=== PATIENT | male | born 1935 | race Two or more races ===

== ENCOUNTER 2021-04-19 11:50 | Inpatient (IN) | payer OTHER ==
[~2021-04-19] VITALS: Ht 182.9 cm; Wt 108.9 kg
[2021-04-19] MEDS ORDERED: LEVOTHYROXINE25 MCG PO (12:03)
[2021-04-19] MEDS ORDERED: GLUMETZA500 MG PO (12:03)
[2021-04-19] MEDS ORDERED: COZAAR100 MG PO (12:03)
[2021-04-19] MEDS ORDERED: VITACEL TABLET1 EACH PO (12:04)
[2021-04-19] MEDS ORDERED: DILTIAZEM ER300 MG PO (12:04)
[2021-04-19] MEDS ORDERED: OZEMPIC1 MG/0.75 SQ (12:04)
[2021-04-19] MEDS ORDERED: LANTUS SOL100 UNIT/1 SQ (12:04)
[2021-04-19] MEDS ORDERED: [UNRECOGNIZED DRUG - OTHER] PO (12:04)
[2021-04-19] MEDS ORDERED: PRAVASTATIN SOD40 MG PO (13:29)
[2021-04-26] MEDS ORDERED: SINEMET 25-1001 EACH PO (14:50)
[2021-04-26] MEDS ORDERED: CALCIUM 500 +1 EACH PO (14:50)
[2021-04-26] MEDS ORDERED: LEVOTHYROXINE175 MCG PO (14:50)
[2021-04-26] MEDS ORDERED: Lantus 1000 UNITS/10 SUBCUTANEO (14:50)
[2021-04-26] MEDS ORDERED: DILTIAZEM ER300 MG PO (14:50)
[2021-04-26] MEDS ORDERED: PROTEINEX-18 LI30 ML PO (14:51)
[2021-04-26] MEDS ORDERED: APETIGEN L790 MG/15 PO (14:51)
== END 2021-04-26 15:06 | DRG 683 ==
LOC: ER 11:50 → MEDJ 11:58 → ER 16:58 → MEDJ 04-26 15:06
PROVIDERS: ADMIT Internal Medicine; ATTEND Internal Medicine
PROC: BW28ZZZ Computerized Tomography (CT Scan) of Head (ICD-10-PCS; 2021-04-19)
PROC: BT4JZZZ Ultrasonography of Kidneys and Bladder (ICD-10-PCS; 2021-04-19)
PROC: B24BYZZ Ultrasonography of Heart with Aorta using Other Contrast (ICD-10-PCS; 2021-04-19)
PROC: 4A12X4Z Monitoring of Cardiac Electrical Activity, External Approach (ICD-10-PCS; principal; 2021-04-20)
DX: N17.8 Other acute kidney failure (principal); M62.82 Rhabdomyolysis; E87.1 Hypo-osmolality and hyponatremia; E86.0 Dehydration; S00.12XA Contusion of left eyelid and periocular area, initial encounter; G20 Parkinson's disease; R53.81 Other malaise; I10 Essential (primary) hypertension; E11.9 Type 2 diabetes mellitus without complications; E78.00 Pure hypercholesterolemia, unspecified; E03.8 Other specified hypothyroidism; Z79.4 Long term (current) use of insulin; Z91.81 History of falling; Z20.822 Contact with and (suspected) exposure to COVID-19